=== PATIENT | male | born 1945 | race Caucasian/White ===

== ENCOUNTER 2021-10-22 00:16 | Inpatient (IN) | payer MEDICARE ==
[~2021-10-22] VITALS: Ht 185.4 cm; Wt 113.4 kg
[~2021-10-22 00:16] MED LIST: ALBU90OI61 INH; ASPI325 PO; ASPI81CH PO; CLOP75 PO; Coumadin5 MG PO; Coumadin6 MG PO; DIGO.125 PO; FAMO10 PO; FAMO20 PO; FURO20 PO; GLUC500 PO; LISI20 PO; LISI5 PO; METF500 PO; NEBI10 PO; NICO21TP TOP; POTCHL10ER PO; ROSU5 PO; WARF1 PO; WARF5; WARF5 PO
[2021-10-22 00:52] LABS: BASOPHILS ABSOLUTE AUTO 0.04 K/mm3 (0.00-0.23); BASOPHILS PERCENT AUTO 0 % (0-2); EOSINOPHILS ABSOLUTE AUTO 0.19 K/mm3 (0.00-0.68); EOSINOPHILS PERCENT AUTO 2 % (0-6); IMMATURE GRAN ABSOLUTE AUTO 0.04 K/mm3 (0.00-0.10); IMMATURE GRAN PERCENT AUTO 0 % (0-1); LYMPHOCYTES ABSOLUTE AUTO 2.51 K/mm3 (0.84-5.20); LYMPHOCYTES PERCENT AUTO 22 % (21-46); MONOCYTES ABSOLUTE AUTO 1.01 K/mm3 (0.16-1.47); MONOCYTES PERCENT AUTO 9 % (4-13); Mean Corpuscular HGB 27.5 pg (26.0-34.0); Mean Corpuscular HGB Conc 32.6 g/dL (31.5-36.5); Mean Corpuscular Volume 84 fL (80-100); Mean Platelet Volume 9.2 fL (9.1-12.4); NEUTROPHILS PERCENT AUTO 67 % (41-73); Platelet Count 225 K/mm3 (150-400); RDW Coefficient Variation 15.2 % (11.7-14.2); RDW Standard Deviation 47.6 fL (35.1-46.3); White Blood Cell Count 11.39 K/mm3 (4.00-11.30)
[2021-10-22] MEDS ORDERED: FUROSEMIDE20 MG PO (00:56)
[2021-10-22] MEDS ORDERED: JANTOVEN5 M2 PO (00:56)
[2021-10-22] MEDS ORDERED: K-Dur10 MEQ PO (00:56)
[2021-10-22] MEDS ORDERED: PIOGLITAZONE HC15 MG PO (00:57)
[2021-10-22 01:12] LABS: Alanine Aminotransfer (ALT/SGP 18 U/L (12-78); Albumin, Blood 3.3 g/dL (3.4-5.0); Albumin/Globulin Ratio 0.8 (0.8-1.8); Alk Phos 43 U/L (50-136); Anion Gap 8 mmol/L (6-16); Aspartate Aminotrans (AST/SGOT 13 U/L (12-37); Bilirubin, Total 0.8 mg/dL (0.1-1.0); Blood Urea Nitrogen 12 mg/dL (8-24); CO2, Blood 24 mmol/L (21-32); Calcium, Blood 8.9 mg/dL (8.5-10.1); Chloride, Blood 107 mmol/L (98-108); Creatinine, Blood 0.71 mg/dL (0.60-1.20); Globulin, Blood 4.4 g/dL (2.2-4.0); Glomerular Filtration Rate >60 (60-); Glucose, Blood 178 mg/dL (70-99); Potassium, Blood 4.1 mmol/L (3.5-5.5); Sodium, Blood 139 mmol/L (136-145); Total Protein, Blood 7.7 g/dL (6.4-8.2); Troponin I <0.015 ng/mL (0.000-0.040)
[2021-10-22 01:28] LABS: Influenza A, PCR NEGATIVE (NEGATIVE); Influenza B, PCR NEGATIVE (NEGATIVE); Resp Syncytial Virus, PCR NEGATIVE (NEGATIVE); SARS-Cov-2 (COVID-19) PCR, MMC NEGATIVE (NEGATIVE)
[2021-10-22 02:06] LABS: International Normalized Ratio 1.98; Prothrombin Time Results 19.9 Sec (9.7-11.5)
[2021-10-22 08:55] LABS: International Normalized Ratio 1.92; Prothrombin Time Results 19.3 Sec (9.7-11.5)
--- NOTE | 2021-10-22 18:27 | NUR ---
Mr Angel Hager is a 76 year old male with a history significant for Chronic afib, Diabetes , hypertension , CAD and COPD who is admitted with shortness of breath and wheezing. He was initially presented to ER with few days of productive cough. Per ER Cough , chest x-ray shows pneumonia and EKG shows Afib with RVR.Troponin was negative. WBC 11.3. Patient is transferred to 345 for further evaluation and treatment. During admission assessment , he is alert and oriented x3 , denies any chest pain , dizziness, headache , shortness of breath. He ambulate independently. On Tele monitor, afib with RVR at 83. Insulin coverage was given for blood glucose. Vital signs are stable. Call light within reach. Continue to monitor.
--- NOTE | 2021-10-23 05:14 | NUR ---
SHIFT SUMMARY A/OX3, COOPERATIVE WITH CARE. DENIES PAIN OR SOB. TELE AFIB AVERAGE IN THE 80S. IND IN ROOM. VSS, NO ACUTE CHANGES AT THIS TIME. BED IN LOWEST POSITION WITH CALL LIGHT IN REACH. WILL CONTINUE TO MONITOR AND REPORT TO ONCOMING RN.
[2021-10-23 05:30] LABS: BASOPHILS ABSOLUTE AUTO 0.02 K/mm3 (0.00-0.23); BASOPHILS PERCENT AUTO 0 % (0-2); EOSINOPHILS PERCENT AUTO 0 % (0-6); Hematocrit 42.6 % (37.0-53.0); Hemoglobin 13.9 g/dL (13.5-17.5); IMMATURE GRAN ABSOLUTE AUTO 0.15 K/mm3 (0.00-0.10); IMMATURE GRAN PERCENT AUTO 1 % (0-1); LYMPHOCYTES ABSOLUTE AUTO 1.44 K/mm3 (0.84-5.20); LYMPHOCYTES PERCENT AUTO 9 % (21-46); MONOCYTES ABSOLUTE AUTO 1.13 K/mm3 (0.16-1.47); MONOCYTES PERCENT AUTO 7 % (4-13); Mean Corpuscular HGB 27.6 pg (26.0-34.0); Mean Corpuscular HGB Conc 32.6 g/dL (31.5-36.5); Mean Corpuscular Volume 85 fL (80-100); Mean Platelet Volume 9.4 fL (9.1-12.4); NEUTROPHILS ABSOLUTE AUTO 12.96 K/mm3 (1.96-9.15); NEUTROPHILS PERCENT AUTO 83 % (41-73); Platelet Count 229 K/mm3 (150-400); RDW Coefficient Variation 15.3 % (11.7-14.2); RDW Standard Deviation 47.1 fL (35.1-46.3); Red Blood Cell Count 5.03 M/mm3 (4.30-5.90)
[2021-10-23 05:43] LABS: International Normalized Ratio 2.34; Prothrombin Time Results 23.2 Sec (9.7-11.5)
[2021-10-23 05:55] LABS: Albumin, Blood 3.2 g/dL (3.4-5.0); Anion Gap 7 mmol/L (6-16); Blood Urea Nitrogen 20 mg/dL (8-24); CO2, Blood 25 mmol/L (21-32); Calcium, Blood 9.2 mg/dL (8.5-10.1); Chloride, Blood 106 mmol/L (98-108); Creatinine, Blood 0.77 mg/dL (0.60-1.20); Glomerular Filtration Rate >60 (60-); Glucose, Blood 208 mg/dL (70-99); Magnesium, Blood 1.9 mg/dL (1.6-2.4); Phosphorus, Blood 2.6 mg/dL (2.5-4.9); Potassium, Blood 4.6 mmol/L (3.5-5.5); Sodium, Blood 138 mmol/L (136-145)
--- NOTE | 2021-10-23 13:38 | NUR ---
Upon receiving a referral for spiritual care, I visit patient. Patient talks about his medical issues, his family unit complications and his dogs. Patient becomes tearful when talking about the of his of 56yrs. She a little over a month ago from COVID while in our hospital. Patient only allows for small doses of grief before changing the subjct but he returns to the topic several times duing our conversation. Patient displays evidence of grief over the loss of some of his independence and mobility. I provide grief support, therapeutic listening and gentle child and family counselor. Patient responds well and shows signs of being comforted. I will continue to assist patient with grief issues and his failing health.
[2021-10-23] MEDS ORDERED: Acetaminophen325 M1 PO (14:02)
[2021-10-23] MEDS ORDERED: ALBU90OI INH (14:03)
[2021-10-23] MEDS ORDERED: AZIT250 PO (14:03)
[2021-10-23] MEDS ORDERED: GUAI600T33 PO (14:04)
[2021-10-23] MEDS ORDERED: CEFP200 PO (14:04)
[2021-10-23] MEDS ORDERED: TIOT18 INH (14:06)
[2021-10-23] MEDS ORDERED: Prednisone10 MG PO (14:08)
[2021-10-23] MEDS ORDERED: FLUTICASONE-SA1 EAC1 INH (14:08)
--- NOTE | 2021-10-23 16:19 | NUR ---
Per chart review with Dr. Massey, patient is appropriate for discharge. Patient is returning home with with his daughter and grandchildren, feels his situation is safe, denied barriers to discharge or concerns with safety. Patient declined Home Health Order. I scheduled a hospital follow-up with Dr. Al for tomorrow Sunday, October 24, 2021 03:20 PM. Patient is aware and agreed with appt time.
--- NOTE | 2021-10-23 17:59 | NUR ---
Alert and oriented x3 , able to make needs known. Denies any pain. Continue on tele monitor with afib average at 80s. Continue on ABO therapy for PNA , no adverse effects. Vital signs are stable.Patient is discharged home in a stable and discharged instruction is given and acknowledged.
== END 2021-10-23 17:31 | disposition home health service (06) | DRG 190 ==
LOC: ER 00:16 → ERHOLD 01:38 → MEDS 15:40 → ENPENDDIS 10-23 12:40 → MEDS 10-23 17:31
PROVIDERS: Emergency Medicine; Family Medicine; ADMIT Internal Medicine
DX: J44.0 Chronic obstructive pulmonary disease with (acute) lower respiratory infection (principal); J18.9 Pneumonia, unspecified organism; I48.20 Chronic atrial fibrillation, unspecified; I42.9 Cardiomyopathy, unspecified; J44.1 Chronic obstructive pulmonary disease with (acute) exacerbation; E78.5 Hyperlipidemia, unspecified; G47.33 Obstructive sleep apnea (adult) (pediatric); E11.9 Type 2 diabetes mellitus without complications; Z79.899 Other long term (current) drug therapy; Z23 Encounter for immunization
CPT/HCPCS: 0241U; 36415; 71045; 80053; 80069; 82947; 83605; 83735; 83880; 84484; 85025; 85610; 90686; 93005; 93010; 94640; 94644; 94760; 96374; 96375; 96376; 99285-25; A9270; G0008; J0456; J0696; J1160; J1650; J1940; J2930; J7050; J7512

== ENCOUNTER 2022-08-30 22:47 | Emergency (ER) | payer MEDICARE ==
[~2022-08-30] VITALS: Ht 182.9 cm; Wt 127.0 kg
[~2022-08-30 22:47] MED LIST changes: +ALBU90OI INH; +AZIT250 PO; +Acetaminophen325 M1 PO; +CEFP200 PO; +FLUTICASONE-SA1 EAC1 INH; +FUROSEMIDE20 MG PO; +GUAI600T33 PO; +JANTOVEN5 M2 PO; +K-Dur10 MEQ PO; +PIOGLITAZONE HC15 MG PO; +Prednisone10 MG PO; +TIOT18 INH
== END 2022-08-31 00:41 | disposition home or self-care (01) ==
LOC: ER 22:47
DX: R04.0 Epistaxis (principal); F17.210 Nicotine dependence, cigarettes, uncomplicated; Z79.899 Other long term (current) drug therapy; Z79.01 Long term (current) use of anticoagulants; Z79.52 Long term (current) use of systemic steroids; Z95.5 Presence of coronary angioplasty implant and graft

== ENCOUNTER 2022-08-31 01:39 | Emergency (ER) | payer MEDICARE ==
[~2022-08-31] VITALS: Ht 188 cm; Wt 113.4 kg
== END 2022-08-31 02:43 | disposition home or self-care (01) ==
LOC: ER 01:39
DX: R04.0 Epistaxis (principal); J44.9 Chronic obstructive pulmonary disease, unspecified; I10 Essential (primary) hypertension; I48.91 Unspecified atrial fibrillation; E11.9 Type 2 diabetes mellitus without complications; F17.210 Nicotine dependence, cigarettes, uncomplicated; Z79.01 Long term (current) use of anticoagulants; Z79.899 Other long term (current) drug therapy
CPT/HCPCS: 30901; 99282-25

== ENCOUNTER → 2023-01-15 | Outpatient (CLI) | payer MEDICARE ==
[~2023-01-15] MED LIST changes: +AMOX-CLAV 875-1 EAC5 PO; +Bystolic20 MG PO; +DIGOX125 MC1 PO; +GLIP5 PO; +GLUCOPHAGE1000 M1 PO; +LOVASTATIN40 MG PO; -METF500 PO; +Monodox100 MG PO; -NEBI10 PO
[2023-01-15 15:39] LABS: BASOPHILS ABSOLUTE AUTO 0.07 K/mm3 (0.00-0.23); BASOPHILS PERCENT AUTO 1 % (0-2); EOSINOPHILS ABSOLUTE AUTO 0.26 K/mm3 (0.00-0.68); EOSINOPHILS PERCENT AUTO 3 % (0-6); Hematocrit 48.8 % (37.0-53.0); Hemoglobin 16.2 g/dL (13.5-17.5); IMMATURE GRAN ABSOLUTE AUTO 0.04 K/mm3 (0.00-0.10); IMMATURE GRAN PERCENT AUTO 1 % (0-1); LYMPHOCYTES ABSOLUTE AUTO 1.15 K/mm3 (0.84-5.20); LYMPHOCYTES PERCENT AUTO 13 % (21-46); MONOCYTES ABSOLUTE AUTO 0.82 K/mm3 (0.16-1.47); MONOCYTES PERCENT AUTO 9 % (4-13); Mean Corpuscular HGB Conc 33.2 g/dL (31.5-36.5); Mean Corpuscular Volume 84 fL (80-100); Mean Platelet Volume 9.2 fL (9.1-12.4); NEUTROPHILS ABSOLUTE AUTO 6.48 K/mm3 (1.96-9.15); NEUTROPHILS PERCENT AUTO 74 % (41-73); Platelet Count 191 K/mm3 (150-400); RDW Coefficient Variation 15.7 % (11.7-14.2); RDW Standard Deviation 47.6 fL (35.1-46.3); Red Blood Cell Count 5.79 M/mm3 (4.30-5.90); White Blood Cell Count 8.82 K/mm3 (4.00-11.30)
[2023-01-15 15:47] LABS: Bun/Creatinine Ratio 11.5 (12.0-20.0); Creatinine, Blood 0.78 mg/dL (0.60-1.20)
== END | disposition home or self-care (01) ==
LOC: LAB 15:32 → LAB SHORT 15:32
PROVIDERS: Family Medicine
DX: R06.02 Shortness of breath (principal)
CPT/HCPCS: 80048; 83880; 84484; 85025

== ENCOUNTER 2023-01-18 11:19 | Inpatient (IN) | payer MEDICARE ==
[~2023-01-18] VITALS: Ht 182.9 cm; Wt 100.1 kg
[~2023-01-18 11:19] MED LIST changes: -ALBU90OI INH; -AMOX-CLAV 875-1 EAC5 PO; -Bystolic20 MG PO; -DIGOX125 MC1 PO; -FUROSEMIDE20 MG PO; -GLIP5 PO; -GLUCOPHAGE1000 M1 PO; -JANTOVEN5 M2 PO; -LISI20 PO; -LOVASTATIN40 MG PO; -Monodox100 MG PO; -PIOGLITAZONE HC15 MG PO
[2023-01-18 13:14] LABS: Albumin, Blood 3.5 g/dL (3.4-5.0); Bilirubin, Total 0.5 mg/dL (0.1-1.0); Bun/Creatinine Ratio 27.1 (12.0-20.0); Creatinine, Blood 0.66 mg/dL (0.60-1.20); Globulin, Blood 3.6 g/dL (2.2-4.0); Potassium, Blood 4.1 mmol/L (3.5-5.5); Total Protein, Blood 7.1 g/dL (6.4-8.2)
[2023-01-18 13:18] LABS: BASOPHILS ABSOLUTE AUTO 0.04 K/mm3 (0.00-0.23); BASOPHILS PERCENT AUTO 0 % (0-2); EOSINOPHILS ABSOLUTE AUTO 0.12 K/mm3 (0.00-0.68); EOSINOPHILS PERCENT AUTO 1 % (0-6); Hematocrit 49.8 % (37.0-53.0); Hemoglobin 16.4 g/dL (13.5-17.5); IMMATURE GRAN ABSOLUTE AUTO 0.07 K/mm3 (0.00-0.10); IMMATURE GRAN PERCENT AUTO 1 % (0-1); LYMPHOCYTES ABSOLUTE AUTO 1.41 K/mm3 (0.84-5.20); LYMPHOCYTES PERCENT AUTO 14 % (21-46); MONOCYTES ABSOLUTE AUTO 1.01 K/mm3 (0.16-1.47); MONOCYTES PERCENT AUTO 10 % (4-13); Mean Corpuscular HGB Conc 32.9 g/dL (31.5-36.5); Mean Corpuscular Volume 85 fL (80-100); Mean Platelet Volume 9.5 fL (9.1-12.4); NEUTROPHILS PERCENT AUTO 75 % (41-73); Platelet Count 225 K/mm3 (150-400); RDW Coefficient Variation 15.7 % (11.7-14.2); RDW Standard Deviation 49.6 fL (35.1-46.3); Red Blood Cell Count 5.85 M/mm3 (4.30-5.90); White Blood Cell Count 10.45 K/mm3 (4.00-11.30)
[2023-01-18] MEDS ORDERED: AMOX-CLAV 875-1 EAC5 PO (19:26)
[2023-01-18] MEDS ORDERED: Monodox100 MG PO (19:27)
[2023-01-18] MEDS ORDERED: DIGOX125 MC1 PO (19:27)
[2023-01-18] MEDS ORDERED: GLIP5 PO (19:28)
[2023-01-18] MEDS ORDERED: PIOGLITAZONE HC15 MG PO (19:28)
[2023-01-18] MEDS ORDERED: LISI20 PO (19:29)
[2023-01-18] MEDS ORDERED: ALBU90OI INH (19:29)
[2023-01-18 19:30] LABS: International Normalized Ratio 3.35; Prothrombin Time Results 32.5 Sec (9.7-11.5)
[2023-01-18] MEDS ORDERED: LOVASTATIN40 MG PO (19:30)
[2023-01-18] MEDS ORDERED: GLUCOPHAGE1000 M1 PO (19:30)
[2023-01-18] MEDS ORDERED: Bystolic20 MG PO (19:31)
[2023-01-18] MEDS ORDERED: FUROSEMIDE20 MG PO (19:31)
[2023-01-18] MEDS ORDERED: POTCHL10ER PO (19:31)
[2023-01-18] MEDS ORDERED: JANTOVEN5 M2 PO (19:33)
[2023-01-18 19:41] LABS: Digoxin (Lanoxin) 0.58 ug/mL (0.80-2.00)
[2023-01-19 05:02] LABS: International Normalized Ratio 3.82
--- NOTE | 2023-01-19 05:03 | NUR ---
PT IS A&O4, INDEPENDENT WITH ADL'S, 3L NC SATS IN THE MID 90'S, PT IS TACHY AND SOB ON EXCERTION, CARDIZEM GIVEN PER MAR FOR HR >130, NO COMPLAINTS OF PAIN OVERNIGHT, VSS, CONTINUE POC
[2023-01-19 05:06] LABS: Prothrombin Time Results 36.7 Sec (9.7-11.5)
--- NOTE | 2023-01-19 19:14 | NUR ---
SHIFT SUMMARY A&O X 4. VSS. IS INDEPENDENT IN THE ROOM FOR RESTROOM USE. IS SATING >90% ON 2 L'S O2. IS ON TELE, HE BECOMES TACHY WITH ANY EXERTION IN THE ROOM, UP TO THE RESTROOM. HR UP TO 150'S. HE DEINIES PAIN, N/V. STATES HE BECOMES SOB WITH EXERTION. IS [place]. IS PLEASANT & COOPERATIVE WITH ALL CARE.
--- NOTE | 2023-01-19 22:35 | NUR ---
PATIENT HR >130'S AT REST, PRN CARDIZEM GIVEN. HR 85 POST CARDIZEM ADMINISTRATION. PATIENT AAOX4, ON 3LNC, SATTING IN 90'S. WILL CONTINUE TO MONITOR.
[2023-01-20 04:25] LABS: BASOPHILS ABSOLUTE AUTO 0.03 K/mm3 (0.00-0.23); BASOPHILS PERCENT AUTO 0 % (0-2); EOSINOPHILS PERCENT AUTO 0 % (0-6); Hematocrit 47.7 % (37.0-53.0); Hemoglobin 15.7 g/dL (13.5-17.5); IMMATURE GRAN PERCENT AUTO 1 % (0-1); LYMPHOCYTES ABSOLUTE AUTO 1.22 K/mm3 (0.84-5.20); LYMPHOCYTES PERCENT AUTO 8 % (21-46); MONOCYTES ABSOLUTE AUTO 0.62 K/mm3 (0.16-1.47); MONOCYTES PERCENT AUTO 4 % (4-13); Mean Corpuscular HGB 27.8 pg (26.0-34.0); Mean Corpuscular HGB Conc 32.9 g/dL (31.5-36.5); Mean Corpuscular Volume 85 fL (80-100); NEUTROPHILS ABSOLUTE AUTO 13.56 K/mm3 (1.96-9.15); NEUTROPHILS PERCENT AUTO 87 % (41-73); Platelet Count 222 K/mm3 (150-400); RDW Coefficient Variation 15.2 % (11.7-14.2); RDW Standard Deviation 46.9 fL (35.1-46.3); Red Blood Cell Count 5.64 M/mm3 (4.30-5.90); White Blood Cell Count 15.53 K/mm3 (4.00-11.30)
[2023-01-20 04:42] LABS: Calcium, Blood 8.8 mg/dL (8.5-10.1); Creatinine, Blood 0.57 mg/dL (0.60-1.20); Potassium, Blood 4.3 mmol/L (3.5-5.5)
[2023-01-20 09:12] LABS: International Normalized Ratio 2.78; Prothrombin Time Results 27.3 Sec (9.7-11.5)
--- NOTE | 2023-01-20 18:43 | NUR ---
SHIFT SUMMARY PT A&O X 4. VSS. PT ON TELE, SHOWS TACHY WHEN UP TO RESTROOM. HR WILL GO HIGH 150-160'S BUT WILL RETURN TO 90-120 ONCE SETTLED BACK INTO BED. PT TRIALED ON RA HOWEVER PT REPORTED INCREASED SOB AND REQUIRED O2 AT 2 L'S TO RE-ESTABLISH EASE OF BREATHING. COAGS DRAWN TODAY. MD RE-STARTED PT'S COUMADIN. PER MD ORDER 1ST DOSE GIVEN THIS EVENING. BLOOD SUGARS COVERED WITH NEW MD ORDER OF HUMALOG INSTEAD OF ORIGINAL ORDER FOR HUMULIN R. BG'S ARE LIKELY ELEVATED FROM CURRENT ILLNESS AND IV STEROIDS. PT EDUCATED REGARDING. PLAN IS FOR DC HOME ONCE CLINICALLY STABLE. PT IS INDEPENDENT IN THE ROOM FOR RESTROOM USE. IS PLEASANT & COOPERATIVE WITH ALL CARE.
--- NOTE | 2023-01-21 04:52 | NUR ---
PULLBOAT ENGINEER SUMMARY NO ACUTE EVENTS THROUGHOUT THE NIGHT. A&OX4. PATIENT EFFECTIVELY COMMUNICATES NEEDS. VSS. RR EVEN AND UNLABORED ON 2L. PATIENT DONS CPAP DURING SLEEP. TELE REVEALS A-FIB, HR 80'S. PATIENT DOES DEMONSTRATE TACHYCARDIA >150 DURING ACTIVITY. CALL LIGHT WITHIN REACH. BED LOW AND LOCKED. THIS RN WILL CONTINUE TO MONITOR.
[2023-01-21 05:15] LABS: BASOPHILS ABSOLUTE AUTO 0.03 K/mm3 (0.00-0.23); BASOPHILS PERCENT AUTO 0 % (0-2); EOSINOPHILS PERCENT AUTO 0 % (0-6); Hematocrit 48.7 % (37.0-53.0); Hemoglobin 15.7 g/dL (13.5-17.5); IMMATURE GRAN ABSOLUTE AUTO 0.13 K/mm3 (0.00-0.10); IMMATURE GRAN PERCENT AUTO 1 % (0-1); LYMPHOCYTES ABSOLUTE AUTO 1.06 K/mm3 (0.84-5.20); LYMPHOCYTES PERCENT AUTO 7 % (21-46); MONOCYTES PERCENT AUTO 4 % (4-13); Mean Corpuscular HGB 27.2 pg (26.0-34.0); Mean Corpuscular HGB Conc 32.2 g/dL (31.5-36.5); Mean Corpuscular Volume 84 fL (80-100); Mean Platelet Volume 9.4 fL (9.1-12.4); NEUTROPHILS ABSOLUTE AUTO 12.62 K/mm3 (1.96-9.15); NEUTROPHILS PERCENT AUTO 87 % (41-73); Platelet Count 205 K/mm3 (150-400); RDW Coefficient Variation 15.3 % (11.7-14.2); RDW Standard Deviation 46.8 fL (35.1-46.3); Red Blood Cell Count 5.77 M/mm3 (4.30-5.90); White Blood Cell Count 14.44 K/mm3 (4.00-11.30)
[2023-01-21 05:27] LABS: International Normalized Ratio 2.14; Prothrombin Time Results 21.4 Sec (9.7-11.5)
[2023-01-21 05:34] LABS: Bun/Creatinine Ratio 32.8 (12.0-20.0); Calcium, Blood 9.2 mg/dL (8.5-10.1); Creatinine, Blood 0.67 mg/dL (0.60-1.20); Potassium, Blood 4.1 mmol/L (3.5-5.5)
--- NOTE | 2023-01-21 17:57 | NUR ---
SHIFT SUMMARY-PT AAOX4 THIS SHIFT. INDEPENDENT IN ROOM. CALM AND COOPERATIVE. PT DID HAVE ONE EPISODE OF INCREASED HR IN THE 180'S (X1) FOR A FEW SECONDS AND THEN A FEW EPISODES OF INCREASED HR FROM 120-140'S. NOTHING WAS SUSTAINED. AFTER MORNING MEDS, HR WAS WELL CONTROLLED.
[2023-01-22 05:09] LABS: International Normalized Ratio 1.77; Prothrombin Time Results 17.9 Sec (9.7-11.5)
--- NOTE | 2023-01-22 05:30 | NUR ---
DIPPER AND BAKER SUMMARY PT A/OX4. PLEASANT AND COOPERATIVE. ON TELE; AFIB IN THE LOW 100'S; RCVD 2-3 CALLS FROM SAND DIGGER TO REPORT PT JUMPED TO 150-180'S BRIEFLY; WHEN CHECKING THE PT--HE WAS ASYMPTOMATIC; PT DENIED CHEST PAIN/PRESSURE, SOB, OR HEART PALPATATIONS. PT ON 2L NC DURING DAY; PLACED CPAP ON OVERNIGHT W/2L BLEED IN. PT TOLERATES WELL. INDEPENDENT IN ROOM, ABLE TO COMMUNICATE NEEDS. CALL LIGHT ACCESSIBLE.
[2023-01-22] MEDS ORDERED: ASPI81CH PO (13:36)
[2023-01-22] MEDS ORDERED: INSULANI SC (13:37)
[2023-01-22] MEDS ORDERED: METO50ER PO (13:40)
[2023-01-22] MEDS ORDERED: PRED20 PO (13:40)
--- NOTE | 2023-01-22 17:00 | NUR ---
PT DISCHARGED THE PT VERBALIZED UNDERSTANDING OF THE DC INSTRUCTIONS. THE PTS PRESCIPTIONS WERE FAXED TO [facility] REQUESTED. OXYGEN WAS DELIVERED AND APPLIED AT DISCHARGE. THE PT WAS TRANSFERED VIA WHEELCHAIR ACCOMPANIED BY THE FOOT TENDER AND HIS FAMILY
== END 2023-01-22 17:18 | disposition home or self-care (01) | DRG 189 ==
LOC: ER 11:19 → MEDS 18:59 → ERHOLD 18:59 → MEDS 20:34
PROVIDERS: Internal Medicine; Physician Assistant; ADMIT Internal Medicine
PROC: 5A09357 Assistance with Respiratory Ventilation, Less than 24 Consecutive Hours, Continuous Positive Airway Pressure (ICD-10-PCS; principal; 2023-01-18)
DX: J96.01 Acute respiratory failure with hypoxia (principal); J44.1 Chronic obstructive pulmonary disease with (acute) exacerbation; I42.9 Cardiomyopathy, unspecified; I48.91 Unspecified atrial fibrillation; I25.10 Atherosclerotic heart disease of native coronary artery without angina pectoris; E11.9 Type 2 diabetes mellitus without complications; G47.33 Obstructive sleep apnea (adult) (pediatric); F17.210 Nicotine dependence, cigarettes, uncomplicated; Z66 Do not resuscitate; E78.5 Hyperlipidemia, unspecified; Z79.899 Other long term (current) drug therapy; Z79.84 Long term (current) use of oral hypoglycemic drugs; Z99.81 Dependence on supplemental oxygen; Z79.01 Long term (current) use of anticoagulants; Z79.811 Long term (current) use of aromatase inhibitors; Z79.51 Long term (current) use of inhaled steroids; Z79.2 Long term (current) use of antibiotics; Z79.52 Long term (current) use of systemic steroids; Z79.82 Long term (current) use of aspirin; Z95.5 Presence of coronary angioplasty implant and graft; Z98.890 Other specified postprocedural states
CPT/HCPCS: 36415; 71046; 80048; 80053; 80162; 82947; 85025; 85610; 93005; 93010; 94640; 94644; 94660; 94664; 94760; 94761; 94762; 96374; 96375; 99285-25; A9270; J1815; J2930; J7512

== ENCOUNTER 2024-03-29 16:20 | Emergency (ER) | payer MEDICARE ==
[~2024-03-29] VITALS: Ht 182.9 cm; Wt 116.1 kg
[~2024-03-29 16:20] MED LIST changes: +ALBU90OI INH; +AMOX-CLAV 875-1 EAC5 PO; +Bystolic20 MG PO; +DIGOX125 MC1 PO; +FUROSEMIDE20 MG PO; +GLIP5 PO; +GLUCOPHAGE1000 M1 PO; +INSULANI SC; +JANTOVEN5 M2 PO; +LISI20 PO; +LOVASTATIN40 MG PO; +METO50ER PO; +Monodox100 MG PO; +PIOGLITAZONE HC15 MG PO; +PRED20 PO
[2024-03-29 16:52] VITALS: BP 132/89
[2024-03-29] MEDS ORDERED: Silver Sulfadiazine 1% Cream 25 APPLIC/25 GM Tube TOP SCH (18:30)
== END 2024-03-29 18:50 | disposition home or self-care (01) ==
LOC: ER 16:20
DX: T21.22XA Burn of second degree of abdominal wall, initial encounter (principal); T31.0 Burns involving less than 10% of body surface; J44.9 Chronic obstructive pulmonary disease, unspecified; X08.8XXA Exposure to other specified smoke, fire and flames, initial encounter; Z79.899 Other long term (current) drug therapy; Z79.84 Long term (current) use of oral hypoglycemic drugs; Z79.01 Long term (current) use of anticoagulants; Z79.82 Long term (current) use of aspirin; Z79.52 Long term (current) use of systemic steroids; F17.210 Nicotine dependence, cigarettes, uncomplicated
CPT/HCPCS: 99283; A9270

== ENCOUNTER 2024-04-06 00:07 | Day surgery (SDC) | payer MEDICARE | END 2024-04-06 22:41 | disposition home or self-care (01) | LOC: WOUND 00:07 | DX: T21.22XD Burn of second degree of abdominal wall, subsequent encounter (principal); T21.23XD Burn of second degree of upper back, subsequent encounter; X06.2XXD Exposure to ignition of other clothing and apparel, subsequent encounter; J44.9 Chronic obstructive pulmonary disease, unspecified; F17.200 Nicotine dependence, unspecified, uncomplicated; Z99.81 Dependence on supplemental oxygen; I10 Essential (primary) hypertension; I25.10 Atherosclerotic heart disease of native coronary artery without angina pectoris; I48.91 Unspecified atrial fibrillation; G47.30 Sleep apnea, unspecified ==

== ENCOUNTER 2024-04-13 04:19 | Day surgery (SDC) | payer MEDICARE | END 2024-04-13 22:49 | disposition home or self-care (01) | LOC: WOUND 04:19 | DX: T21.2 Burn of second degree of trunk (principal); Y83.8 Other surgical procedures as the cause of abnormal reaction of the patient, or of later complication, without mention of misadventure at the time of the procedure; J44.9 Chronic obstructive pulmonary disease, unspecified; E11.9 Type 2 diabetes mellitus without complications; X08.8XXD Exposure to other specified smoke, fire and flames, subsequent encounter ==

== ENCOUNTER 2024-05-13 14:55 | Emergency (ER) | payer MEDICARE ==
[~2024-05-13] VITALS: Ht 182.9 cm; Wt 113.4 kg
[2024-05-13 15:18] LABS: BASOPHILS ABSOLUTE AUTO 0.03 K/mm3 (0.00-0.23); BASOPHILS PERCENT AUTO 0 % (0-2); EOSINOPHILS ABSOLUTE AUTO 0.28 K/mm3 (0.00-0.68); EOSINOPHILS PERCENT AUTO 3 % (0-6); IMMATURE GRAN ABSOLUTE AUTO 0.02 K/mm3 (0.00-0.10); IMMATURE GRAN PERCENT AUTO 0 % (0-1); LYMPHOCYTES ABSOLUTE AUTO 1.19 K/mm3 (0.84-5.20); LYMPHOCYTES PERCENT AUTO 14 % (21-46); MONOCYTES ABSOLUTE AUTO 0.54 K/mm3 (0.16-1.47); MONOCYTES PERCENT AUTO 7 % (4-13); Mean Corpuscular HGB 27.9 pg (26.0-34.0); Mean Corpuscular HGB Conc 31.8 g/dL (31.5-36.5); Mean Corpuscular Volume 88 fL (80-100); Mean Platelet Volume 9.9 fL (9.1-12.4); NEUTROPHILS ABSOLUTE AUTO 6.18 K/mm3 (1.96-9.15); NEUTROPHILS PERCENT AUTO 75 % (41-73); Platelet Count 171 K/mm3 (150-400); RDW Coefficient Variation 16.2 % (11.7-14.2); RDW Standard Deviation 51.8 fL (35.1-46.3); Red Blood Cell Count 5.02 M/mm3 (4.30-5.90); White Blood Cell Count 8.24 K/mm3 (4.00-11.30)
[2024-05-13 15:26] LABS: International Normalized Ratio 1.67; Prothrombin Time Results 17.2 Sec (9.7-11.5)
[2024-05-13 15:40] LABS: Albumin, Blood 3.5 g/dL (3.4-5.0); Albumin/Globulin Ratio 1.1 (0.8-1.8); Bilirubin, Total 0.7 mg/dL (0.1-1.0); Bun/Creatinine Ratio 14.9 (12.0-20.0); Calcium, Blood 8.6 mg/dL (8.5-10.1); Creatinine, Blood 0.74 mg/dL (0.60-1.20); Globulin, Blood 3.3 g/dL (2.2-4.0); Potassium, Blood 3.8 mmol/L (3.5-5.5); Total Protein, Blood 6.8 g/dL (6.4-8.2)
[2024-05-13] MEDS ORDERED: Diltiazem HCl 5 MG / ML 5ML Vial IV ONE (15:40)
[2024-05-13 16:26] VITALS: BP 121/62
[2024-05-13] MEDS ORDERED: METO25ER PO (17:47)
== END 2024-05-13 18:03 | disposition home or self-care (01) ==
LOC: ER 14:55
PROVIDERS: Student in an Organized Health Care Education/Training Program
DX: I48.91 Unspecified atrial fibrillation (principal); R55 Syncope and collapse; F17.210 Nicotine dependence, cigarettes, uncomplicated; Z79.01 Long term (current) use of anticoagulants; Z79.84 Long term (current) use of oral hypoglycemic drugs; Z79.82 Long term (current) use of aspirin; Z79.52 Long term (current) use of systemic steroids; Z79.899 Other long term (current) drug therapy
CPT/HCPCS: 71046; 80053; 82947; 83735; 84484; 85025; 85610; 93005; 93010; 96374; 99284-25

== ENCOUNTER 2025-03-27 00:42 | Inpatient (IN) | payer MEDICARE ==
[~2025-03-27] VITALS: Ht 182.9 cm; Wt 117.4 kg
[~2025-03-27 00:42] MED LIST changes: +METO25ER PO
[2025-03-27] MEDS ORDERED: Ipratropium/Albuterol SulF 2.5-0.5MG/3 ML Amp INH PRN (01:00)
[2025-03-27] MEDS ORDERED: Ipratropium/Albuterol SulF 2.5-0.5MG/3 ML Amp INH ONE (01:35)
[2025-03-27 01:45] LABS: Base Excess Venous 0.9 mmol/L; Bicarbonate Venous 24.6 mmol/L (24.0-30.0); PCO2 Venous 44.9 mmHg (38-42); pH Blood Venous 7.37 (7.34-7.37)
[2025-03-27 01:52] LABS: BASOPHILS ABSOLUTE AUTO 0.04 K/mm3 (0.00-0.23); BASOPHILS PERCENT AUTO 0 % (0-2); EOSINOPHILS ABSOLUTE AUTO 0.09 K/mm3 (0.00-0.68); EOSINOPHILS PERCENT AUTO 1 % (0-6); Hematocrit 44.3 % (37.0-53.0); Hemoglobin 14.4 g/dL (13.5-17.5); IMMATURE GRAN ABSOLUTE AUTO 0.11 K/mm3 (0.00-0.10); IMMATURE GRAN PERCENT AUTO 1 % (0-1); LYMPHOCYTES ABSOLUTE AUTO 0.58 K/mm3 (0.84-5.20); LYMPHOCYTES PERCENT AUTO 4 % (21-46); MONOCYTES PERCENT AUTO 8 % (4-13); Mean Corpuscular HGB 28.6 pg (26.0-34.0); Mean Corpuscular HGB Conc 32.5 g/dL (31.5-36.5); Mean Corpuscular Volume 88 fL (80-100); NEUTROPHILS ABSOLUTE AUTO 12.55 K/mm3 (1.96-9.15); NEUTROPHILS PERCENT AUTO 87 % (41-73); Platelet Count 184 K/mm3 (150-400); RDW Coefficient Variation 15.3 % (11.7-14.2); RDW Standard Deviation 49.1 fL (35.1-46.3); Red Blood Cell Count 5.03 M/mm3 (4.30-5.90); White Blood Cell Count 14.47 K/mm3 (4.00-11.30)
[2025-03-27] MEDS ORDERED: MethylPREDNISolone Sod Succ 125 MG Vial IV ONE (01:55)
[2025-03-27] MEDS ORDERED: Azithromycin 500 MG in NS 250 ML IV ONE (01:55)
[2025-03-27 02:08] LABS: Albumin, Blood 3.4 g/dL (3.4-5.0); Albumin/Globulin Ratio 0.9 (0.8-1.8); Bilirubin, Total 1.3 mg/dL (0.1-1.0); Bun/Creatinine Ratio 12.7 (12.0-20.0); Calcium, Blood 8.9 mg/dL (8.5-10.1); Creatinine, Blood 0.94 mg/dL (0.60-1.20); Globulin, Blood 3.6 g/dL (2.2-4.0); Potassium, Blood 4.4 mmol/L (3.5-5.5)
[2025-03-27 03:16] LABS: International Normalized Ratio 2.46; Prothrombin Time Results 24.6 Sec (9.7-11.5)
[2025-03-27 03:45] LABS: Influenza A, PCR NEGATIVE (NEGATIVE); Influenza B, PCR NEGATIVE (NEGATIVE); Resp Syncytial Virus, PCR NEGATIVE (NEGATIVE); SARS-Cov-2 (COVID-19) PCR, MMC NEGATIVE (NEGATIVE)
[2025-03-27] MEDS ORDERED: CefTRIAXone Sodium 1,000 MG in NS 100 ML IV ONE (04:00)
[2025-03-27] MEDS ORDERED: Ipratropium Bromide INH 0.02% 0.5 mg/2.5ML Vial INH SCH (04:05)
[2025-03-27] MEDS ORDERED: Albuterol 2.5 MG/3 ML VIAL INH SCH (04:05)
[2025-03-27] MEDS ORDERED: Ipratropium/Albuterol SulF 2.5-0.5MG/3 ML Amp INH SCH ×2 (05:00→19:20)
[2025-03-27] MEDS ORDERED: Acetaminophen 325 MG TABLET PO PRN (05:05)
[2025-03-27] MEDS ORDERED: Heparin Sodium,Porcine/0.5 NS 500 ML IV SCH (05:55)
[2025-03-27] MEDS ORDERED: Albuterol 2.5 MG/3 ML VIAL INH PRN (06:25)
[2025-03-27] MEDS ORDERED: Vitamin D1000 UNI1 PO (07:25)
[2025-03-27] MEDS ORDERED: TRELEGY ELLIPT1 EACH INH (07:28)
[2025-03-27] MEDS ORDERED: C COMPLEX1000 M1 PO (07:30)
[2025-03-27] MEDS ORDERED: CINNAMON EXTRA500 MG PO (07:30)
[2025-03-27] MEDS ORDERED: Insulin Human Lispro 100 Units/ML 3ML Syringe SC SCH ×2 (07:30)
[2025-03-27 08:30] VITALS: BP 146/102
[2025-03-27] MEDS ORDERED: Aspirin 81 MG Chew PO SCH (09:00)
[2025-03-27] MEDS ORDERED: Atorvastatin 40 MG Tab PO SCH ×2 (09:00→21:00)
[2025-03-27] MEDS ORDERED: Metoprolol Succinate 25 MG TABCR PO SCH (09:00)
[2025-03-27] MEDS ORDERED: Empagliflozin 10 MG TAB PO SCH (09:00)
[2025-03-27] MEDS ORDERED: MethylPREDNISolone Sod Succ 125 MG Vial IV SCH (09:00)
[2025-03-27] MEDS ORDERED: GuaiFENesin 600 MG TabCR PO SCH (09:00)
[2025-03-27] MEDS ORDERED: Furosemide 20 MG Tab PO SCH (09:00)
[2025-03-27] MEDS ORDERED: Lactobacil 2-S.Thermo-Bifido 1 1 Cap PO SCH (09:00)
[2025-03-27] MEDS ORDERED: Lisinopril 20 MG Tab PO SCH (09:00)
[2025-03-27] MEDS ORDERED: Spironolactone 25 MG Tab PO SCH (11:00)
[2025-03-27] MEDS ORDERED: Torsemide 20 MG TAB PO SCH (11:00)
[2025-03-27] MEDS ORDERED: AmLODIPine Besylate 5 MG Tab PO SCH (11:00)
[2025-03-27] MEDS ORDERED: Clopidogrel Bisulfate 75 MG Tab PO SCH (11:00)
[2025-03-27] MEDS ORDERED: Pantoprazole Sodium 20 MG Tab PO SCH (11:00)
[2025-03-27 11:27] VITALS: BP 122/68
[2025-03-27] MEDS ORDERED: Dose Adjust by Pharmacy XX STA ×2 (14:50→21:49)
[2025-03-27] MEDS ORDERED: Heparin Sodium 5000 Units/ML 1ML MDV IV ONE (14:55)
[2025-03-27] MEDS ORDERED: Amiodarone HCl 50 MG / ML 3 ML Amp IV ONE (16:44)
[2025-03-27 16:54] VITALS: BP 124/75
--- NOTE | 2025-03-27 18:16 | NUR ---
SHIFT SUMMARY PT A/OX4 AND COOPERATIVE OF CARE. PT ABLE TO EXPRESS NEEDS AND CALLED APPROPIATE. PT VSS THROUGHOUT SHIFT WITH O2 SATS IN FE 90'S ON 3-5L NC, 5L IS PT REPORTED BASELINE. NO REPORT OF CHEST PAIN/PRESSURE THROUGHOUT SHIFT. NO REPORT OF SOB/DYSPNEA THROUGHOUT SHIFT. PT REQUESTED THAT THE LOW DOSES OF INSULIN BE HELD THIS SHIFT, NO INSULIN GIVEN PER PT REQUEST. BLOOD SUGARS RANGED 130'S-170'S, SEE CHART. PT SEEN BY CARDIOLOGY TODAY, SEE [facility] HCM CONSULTANT'S NOTES.
--- NOTE | 2025-03-27 19:42 | NUR ---
ASSUMPTION OF CARE ASSUMED PT'S CARE AT 1900,BEDSIDE REPORT COMPLETED.PT WIDE AWAKE WATCHING TV,TV GUIDE PROVIDED PER PT'S REQUEST.HEPARIN INFUSION RATE VERIFIED.INFUSING AT 17UNIT/KG/HOUR,32ML/HR.PLAN OF CARE REVIEWED.PT DENIES PAIN,DENIES NEEDS.CALL LIGHT AND PT'S ITEMS WITHIN REACH.WILL CONTINUE TO MONITOR.
[2025-03-27 20:42] VITALS: BP 134/75
[2025-03-27 23:51] VITALS: BP 139/75
[2025-03-28] VITALS (12 sets, daily range): BP systolic 118–177; BP diastolic 84–159
[2025-03-28 03:59] LABS: Bun/Creatinine Ratio 22.8 (12.0-20.0); Calcium, Blood 9.5 mg/dL (8.5-10.1); Creatinine, Blood 1.01 mg/dL (0.60-1.20); Potassium, Blood 3.5 mmol/L (3.5-5.5)
[2025-03-28] MEDS ORDERED: Dose Adjust by Pharmacy XX STA (04:36)
[2025-03-28 04:51] LABS: Hematocrit 44.3 % (37.0-53.0); Hemoglobin 14.1 g/dL (13.5-17.5); Mean Platelet Volume 10.3 fL (9.1-12.4); Platelet Count 193 K/mm3 (150-400)
[2025-03-28] MEDS ORDERED: CefTRIAXone Sodium 1,000 MG in NS 100 ML IV SCH (06:00)
[2025-03-28] MEDS ORDERED: Azithromycin 500 MG in NS 250 ML IV SCH (06:00)
[2025-03-28] MEDS ORDERED: Potassium Chloride 10 Meq Tablet SA PO ONE ×2 (06:25→09:25)
--- NOTE | 2025-03-28 06:44 | NUR ---
PT SLEPT MOST OF THE NIGHT,USED THE URINAL INDEPENDENTLY AT BEDSIDE.HEPARIN GTT INFUSING ORDERED,NO CHANGES IN RATE OVERNIGHT.HEPARIN ANTI-Xa WITHIN THERAPEUTIC RANGE.PT DENIES PAIN,DENIES NEEDS.CALL LIGHT AND PT'S ITEMS WITHIN REACH.WILL GIVE REPORT TO DAYSHIFT NURSE FOR CONTINUITY OF CARE.
--- NOTE | 2025-03-28 07:16 | NUR ---
ASSUMPTION NOTE: THIS RN TO ASSUME CARE OF PATIENT. PATIENT IN BED, WATCHING TV. DENIED ANY CHEST PAIN/PRESSURE. DENIED NEEDING ANYTHING AT THIS TIME, HAS CALL LIGHT WITHIN REACH & BED IN LOWEST POSITION.
--- NOTE | 2025-03-28 08:00 | NUR ---
CUSHION COVER INSPECTOR ROUNDED: MD ROUNDED AND SPOKE TO PATIENT. NEW ORDERS FOR MEDICATIONS WERE ORDERED ALONG WITH LAB DRAWS FOR TOMORROW.
[2025-03-28] MEDS ORDERED: Metoprolol Succinate 25 MG TABCR PO SCH ×2 (09:00)
[2025-03-28] MEDS ORDERED: MethylPREDNISolone Sod Succ 40 MG VIAL IV SCH (09:00)
[2025-03-28] MEDS ORDERED: FentaNYL Citrate 50 MCG/ML 2 ML Injection ONE ×2 (10:45→11:46)
[2025-03-28] MEDS ORDERED: Ipratropium/Albuterol SulF 2.5-0.5MG/3 ML Amp INH PRN (10:55)
--- NOTE | 2025-03-28 11:03 | NUR ---
RAPID RESPONSE: THIS RN WAS CALLED BY [facility] THAT PATIENTS HEART RATE WAS IN THE 200'S AND V-TACH MONOMORPHIC. PATIENT WAS AT THE EDGE OF THE BED GOING TO USE THE URINA, WAS ASKED HOW HE WAS FEELING AND PATIENT STATED "HE WAS A LITTLE DIZZY". BLOOD PRESSURE TAKEN AND NORMAL 120/86 MAP OF 99. PATIENT WAS LAID ON THE BED AND ASKED IF HE WOULD BE OKAY WITH GETTING SHOCKED DUE TO HIM BEING A DNR. PATIENT STATED "YES THAT'S FINE". PADS WERE PLACED ON, AND ZOLL WAS SYNCHRONIZED & CHARGED TO 200. PATIENT SHOCKED AND RYTHM RETURNED TO AFIB WITH RATE 90-120. PATIENT WAS GIVEN A ONE TIME DOSE OF AMIODARONE OF 150MG AND AN ORDER FOR AN AMIODARONE DRIP WAS PLACED. & SADE AT BEDSIDE. DAUGHTER WAS NOTIFIED & FREELANCE WRITER ELVIS WAS PAGED. EKG WAS DONE POST SHOCK AND LABS WERE ORDERED. PATIENT DENIES FEELING LIGHT HEADED OR DIZZY POST SHOCK, BLOOD PRESSURE 138/122 MAP 122 AND HEART RATE 132.
[2025-03-28] MEDS ORDERED: NS 250 ML IV ONE (11:45)
[2025-03-28] MEDS ORDERED: Heparin Sodium 1000 Units/ML 10ML MDV ONE ×2 (11:45→13:03)
[2025-03-28] MEDS ORDERED: NS 1,000 ML IV ONE ×2 (11:45→11:47)
[2025-03-28] MEDS ORDERED: Verapamil HCL 2.5 MG/ML 2ML Injection ONE (11:45)
[2025-03-28] MEDS ORDERED: Midazolam HCl 1MG / ML 2ML Vial ONE (11:46)
[2025-03-28] MEDS ORDERED: Nitroglycerin 2 MG/20 ML BTL ONE (11:46)
[2025-03-28 11:49] LABS: Albumin, Blood 3.8 g/dL (3.4-5.0); Anion Gap 13 mmol/L (3-11); Blood Urea Nitrogen 23 mg/dL (8-24); Bun/Creatinine Ratio 23.1 (12.0-20.0); CO2, Blood 30 mmol/L (21-32); Calcium, Blood 8.9 mg/dL (8.5-10.1); Chloride, Blood 101 mmol/L (98-108); Glomerular Filtration Rate 77 (60-); Glucose, Blood 200 mg/dL (70-99); Phosphorus, Blood 3.1 mg/dL (2.5-4.9); Potassium, Blood 3.6 mmol/L (3.5-5.5); Sodium, Blood 140 mmol/L (136-145)
[2025-03-28] MEDS ORDERED: Tirofiban HCL Monohydrate 3.75 MG/15 ML Vial ONE (11:56)
[2025-03-28] MEDS ORDERED: Atropine Sulfate 0.1 MG/ML 10ML SYR ONE (11:57)
[2025-03-28] MEDS ORDERED: Phenylephrine HCl 100 MCG/ML-NS 10MLSYR (1MG/10ML) ONE (11:57)
[2025-03-28] MEDS ORDERED: Digoxin 0.25 MG/ML 2ML Amp ONE (12:50)
--- NOTE | 2025-03-28 13:32 | NUR ---
MD CALLED: INFORMATION TECHNOLOGY COORDINATOR CALLED REGARDING PATIENTS MEDICATIONS AND GAVE VERBAL ORDERS TO BE PLACED.
[2025-03-28] MEDS ORDERED: FentaNYL Citrate 50 MCG/ML 2 ML Injection IV ONE (14:00)
--- NOTE | 2025-03-28 17:02 | NUR ---
SHIFT SUMMARY: PATIENT IS ALERT AND ORIENTED X4 & COOPERATIVE WITH HIS CARE, IS ABLE TO MAKE NEEDS KNOWN & USES CALL LIGHT APPROPIATELY. PATIENT IS ON TELE SHOWING AFIB WITH RATE 90-120, DID HAVE A RAPID RESPONSE FOR V-TACH, SEE PREIVOUS NOTES FOR MORE INFORMATION. PATIENT HAS FAMILY AT BEDSIDE. ANGIOGRAM WAS DONE WITH NO INTERVENTIONS, PATIENT ACCESS SITE RIGHT RADIAL AND NEEDED REMINDERS TO NOT USE WRIST HE WAS AND NEEDED TO KEEP THE WRIST BOARD ON LONGER. PATIENT EDUCATED ON WATCHING THE AMOUNT OF FLUID HE IS TAKING AND DUE TO DIURESING AND WANTING TO STAY AHEAD OF IT. PATIENT WAS GIVEN INSULIN FOR ELEVATED BLOOD SUGARS THORUGHOUT THE SHIFT. USES THE URINAL AT BEDSIDE AND IS STAND BY ASSIST. PATIENT HAS CALL LIGHT WITHIN REACH, BED IN LOWEST POSITION & STATNING NOTHING IS NEEDED AT THIS TIME. PLAN WILL BE TO CONTINUE TO TAKE AIR OUT OF TR BAND AND RECOVER SITE.
--- NOTE | 2025-03-28 17:15 | NUR ---
PALLIATIVE CARE VISIT: CALL RECEIVED FROM PRIMARY RN TO ADDRESS CODE STATUS/POLST. RN EXPLAINED PT HAD EVENT OF V-TACH ARRHYTHMIA AND WANTED TO BE SHOCKED TO HAVE ARRHYTHMIA CONVERTED. PT IS CURRENTLY A DNR. EDUCATED PT ON POLST DNR, COMFORT MEASURES VS SELECTIVE TREATMENT, FULL CODE/FULL TREATMENT. PT CHOSE DNR SELECTIVE TREATMENT. ADDITIONAL ORDERS ADDED PER PT REQUEST OK TO SHOCK IF IN ARRHYTHMIA. POLST SIGNED BY DAUGHTER IVY WHO WAS PRESENT PT HAD ANGIOGRAM AND R WRITING HAND WAS IN A ARM BAND AND HE WAS UNABLE TO SIGN. DR. STUART SIGNED POLST. FAXED TO [facility]/POLST REGISTRY. COPY PLACED ON CHART. ORIGINAL GIVEN BACK TO PATIENT AND ADVISED TO KEEP IN PLACE WHERE EMS WILL SEE IF THEY ARE CALLED.
--- NOTE | 2025-03-28 18:36 | NUR ---
ROUNDED: MD MUNOZ ROUNDED ON PATIENT TO CHECK ON SITE. AWARE THAT PATIENT WAS USING ARM AND BAND WAS ON FOR AN EXTRA AMOUNT OF TIME
--- NOTE | 2025-03-28 19:46 | NUR ---
ASSUMPTION OF CARE ASSUMED PT'S CARE AT 1900,BEDSIDE REPORT COMPLETED.PT WIDE AWAKE WATCHING TV.PLAN OF CARE REVIEWED.PACER PADS IN PLACE.RIGHT RADIAL SIDE SLIGHTLY SWOLLEN AND BRUISED,RADIAL PULSES STRONG.TRANSPARENT DRESSING CDI.PT DENIES PAIN,DENIES NEEDS.CALL LIGHT AND PT'S ITEMS WITHIN REACH.WILL CONTINUE TO MONITOR.
[2025-03-28] MEDS ORDERED: Apixaban 5 MG Tab PO SCH (21:00)
[2025-03-29] VITALS (15 sets, daily range): BP systolic 114–157; BP diastolic 78–118
[2025-03-29 05:15] LABS: BASOPHILS ABSOLUTE AUTO 0.03 K/mm3 (0.00-0.23); BASOPHILS PERCENT AUTO 0 % (0-2); EOSINOPHILS ABSOLUTE AUTO 0.05 K/mm3 (0.00-0.68); EOSINOPHILS PERCENT AUTO 0 % (0-6); Hemoglobin 15.3 g/dL (13.5-17.5); IMMATURE GRAN ABSOLUTE AUTO 0.12 K/mm3 (0.00-0.10); IMMATURE GRAN PERCENT AUTO 1 % (0-1); LYMPHOCYTES ABSOLUTE AUTO 1.42 K/mm3 (0.84-5.20); LYMPHOCYTES PERCENT AUTO 9 % (21-46); MONOCYTES ABSOLUTE AUTO 1.56 K/mm3 (0.16-1.47); MONOCYTES PERCENT AUTO 10 % (4-13); Mean Corpuscular HGB 28.7 pg (26.0-34.0); Mean Corpuscular HGB Conc 32.6 g/dL (31.5-36.5); Mean Corpuscular Volume 88 fL (80-100); Mean Platelet Volume 10.2 fL (9.1-12.4); NEUTROPHILS ABSOLUTE AUTO 13.03 K/mm3 (1.96-9.15); NEUTROPHILS PERCENT AUTO 80 % (41-73); Platelet Count 205 K/mm3 (150-400); RDW Coefficient Variation 15.6 % (11.7-14.2); RDW Standard Deviation 49.9 fL (35.1-46.3); Red Blood Cell Count 5.33 M/mm3 (4.30-5.90); White Blood Cell Count 16.21 K/mm3 (4.00-11.30)
[2025-03-29 05:40] LABS: Bun/Creatinine Ratio 29.7 (12.0-20.0); Calcium, Blood 8.9 mg/dL (8.5-10.1); Creatinine, Blood 0.98 mg/dL (0.60-1.20); Potassium, Blood 3.6 mmol/L (3.5-5.5)
--- NOTE | 2025-03-29 06:38 | NUR ---
PT HAS BEEN SLEEPING ON/OFF THROUGHOUT THE NIGHT,USES THE URINAL INDEPENDENTLY AT BEDSIDE.HR HAS BEEN IN THE 80'S-LOW 100'S AT REST.CONTINUES ON AMIODARONE 33.3ML/HR.NO C/O CHEST/DISCOMFORT.RIGHT RADIAL ACCESS SITE BRUISED AND SWOLLED.NO CHANGES NOTED TO SITE.PULSES STRONG.PT C/O SLIGHT PAIN TO RIGHT WRIST DENIES NEED FOR PAIN MED.PT AWAKE RESTING IN BED,DENIES PAIN,DENIES NEEDS.CALL LIGHT AND PT'S ITEMS WITHIN REACH.WILL GIVE REPORT TO DAYSHIFT NURSE FOR CONTINUITY OF CARE.
[2025-03-29] MEDS ORDERED: Potassium Chloride 20 MEQ TabCR PO ONE (07:10)
[2025-03-29] MEDS ORDERED: Amiodarone HCl 200 MG Tab PO SCH (08:00)
[2025-03-29] MEDS ORDERED: Sacubitril/Valsartan 24 MG-26 MG Tab PO SCH (09:00)
[2025-03-29] MEDS ORDERED: Metoprolol Succinate 50 MG TABCR PO SCH (09:00)
[2025-03-29] MEDS ORDERED: Miconazole Nitrate 2% 85 GM PWD TOP SCH (09:45)
--- NOTE | 2025-03-29 16:30 | NUR ---
SHIFT SUMMARY: A/O X4, PLEASANT AND COOPERATIVE WITH CARE, ABLE TO COMMUNICATE NEEDS, USES CALL LIGHT APPROPRIATELY. A FIB, [id number]%, BBB, HR 60'S-119'S. SAT >92% ON 2.5L O2 VIA NC, DYSPNIC W/PRODUCTICE COUGH. NO BM FOR 3 DAYS, MD NEWMAN ORDERED BOWEL CARE, USES URINAL AT BEDSIDE, BEDFAST THIS SHIFT DUE TO CARDIAC AND RESPIRATORY NEEDS. POSSIBLE D/C 03/30/25 WITH A LIFE VEST, PLAN FOR POSSIBLE PACER OUTPATIENT, TRANSITIONED FROM IV AMIODERONE TO PO PER EMAR.
[2025-03-29] MEDS ORDERED: Sennosides 8.6 MG Tab PO SCH (21:00)
[2025-03-30 04:41] VITALS: BP 116/94
--- NOTE | 2025-03-30 06:58 | NUR ---
SHIFT SUMMARY: PT IS A&OX4. VSS ON 2L NC, SATS >93%. PT ANXIOUS ABOUT ONLY USING 2L WHEN HE GETS HOME, FEELS THIS WILL NOT BE ADEQUATE. PT AFIB WITH BBB AND OCCASIONAL PVC IN THE 90'S. HR WENT INTO THE 130'S WITH EXERTION. DENIES PAIN. RIGHT ARM ECCYMOTIC, ACCESS SITE TEGADERM C/D/I, ARM BOARD REMAINS IN PLACE. PT IS COMPLIANT WITH RESTRICTIONS. PT OCCASIONALLY COUGHING, WITH SMALL AMOUNTS OF PHGLEM. TOLERATING A CONS CARB DIET. X1 ASSIST WITH FWW TO BR. VOIDING INDEPENDENTLY IN URINAL AT BEDSIDE, ADEQUATE AMOUNTS OF DARK YELLOW URINE. X1 MEDIUM, HARD, BROWN BM THIS SHIFT. BED IN LOWEST POSITION, CALL LIGHT WITHIN REACH. CALLS APPROPRIATELY AND IS ABLE TO ADVOCATE NEEDS EFFECTIVELY.
[2025-03-30 07:46] LABS: BASOPHILS ABSOLUTE AUTO 0.03 K/mm3 (0.00-0.23); BASOPHILS PERCENT AUTO 0 % (0-2); EOSINOPHILS ABSOLUTE AUTO 0.04 K/mm3 (0.00-0.68); EOSINOPHILS PERCENT AUTO 0 % (0-6); Hematocrit 47.4 % (37.0-53.0); Hemoglobin 15.3 g/dL (13.5-17.5); IMMATURE GRAN ABSOLUTE AUTO 0.09 K/mm3 (0.00-0.10); IMMATURE GRAN PERCENT AUTO 1 % (0-1); LYMPHOCYTES PERCENT AUTO 12 % (21-46); MONOCYTES ABSOLUTE AUTO 1.79 K/mm3 (0.16-1.47); MONOCYTES PERCENT AUTO 13 % (4-13); Mean Corpuscular HGB 28.1 pg (26.0-34.0); Mean Corpuscular HGB Conc 32.3 g/dL (31.5-36.5); Mean Corpuscular Volume 87 fL (80-100); Mean Platelet Volume 9.9 fL (9.1-12.4); NEUTROPHILS ABSOLUTE AUTO 10.17 K/mm3 (1.96-9.15); NEUTROPHILS PERCENT AUTO 74 % (41-73); Platelet Count 208 K/mm3 (150-400); RDW Coefficient Variation 15.3 % (11.7-14.2); RDW Standard Deviation 48.4 fL (35.1-46.3); Red Blood Cell Count 5.44 M/mm3 (4.30-5.90); White Blood Cell Count 13.82 K/mm3 (4.00-11.30)
[2025-03-30 08:01] LABS: Creatinine, Blood 0.84 mg/dL (0.60-1.20); Potassium, Blood 3.8 mmol/L (3.5-5.5)
[2025-03-30 08:17] VITALS: BP 104/70
[2025-03-30] MEDS ORDERED: Torsemide 20 MG TAB PO SCH (09:00)
[2025-03-30 12:34] VITALS: BP 109/69
[2025-03-30 15:30] VITALS: BP 124/60
[2025-03-30] MEDS ORDERED: Acetaminophen650 M1 PO (16:13)
[2025-03-30] MEDS ORDERED: AMLO5 PO (16:16)
[2025-03-30] MEDS ORDERED: Amiodarone HCl200 MG PO (16:16)
[2025-03-30] MEDS ORDERED: AMIODARONE HCL400 M2 PO (16:20)
[2025-03-30] MEDS ORDERED: ELIQUIS5 M2 PO (16:24)
[2025-03-30] MEDS ORDERED: ATOR80 PO (16:26)
[2025-03-30] MEDS ORDERED: JARDIANCE10 MG PO (16:28)
[2025-03-30] MEDS ORDERED: PANT20 PO (16:31)
[2025-03-30] MEDS ORDERED: ENTRESTO 24 MG1 EACH PO (16:45)
[2025-03-30] MEDS ORDERED: SENN187 PO (16:46)
[2025-03-30] MEDS ORDERED: SPIR25 PO (16:47)
[2025-03-30] MEDS ORDERED: TORSE20 PO (16:49)
[2025-03-30] MEDS ORDERED: PRED20 PO (16:50)
--- NOTE | 2025-03-30 18:58 | NUR ---
This RN student gave pt discharge instructions. Pt notified about medications that he should not take anymore, as well as prescriptions that were changed or added. Pt was notified about f/u appointment with Dr. Elizalde, and educated regarding diet and lifestyle modifications. Pt expressed understanding with Tx plan and had no further questions or concerns.
[2025-04-02] MEDS ORDERED: Amiodarone HCl 200 MG Tab PO SCH (09:00)
== END 2025-03-30 20:01 | disposition home or self-care (01) | DRG 280 ==
LOC: ER 00:42 → PCU 05:00 → ER 06:12 → PCU 06:19
PROVIDERS: Internal Medicine; Internal Medicine Cardiovascular Disease; Internal Medicine Endocrinology, Diabetes & Metabolism; Student in an Organized Health Care Education/Training Program; ADMIT Student in an Organized Health Care Education/Training Program
PROC: B2111ZZ Fluoroscopy of Multiple Coronary Arteries using Low Osmolar Contrast (ICD-10-PCS; principal; 2025-03-28)
PROC: 5A2204Z Restoration of Cardiac Rhythm, Single (ICD-10-PCS; 2025-03-28)
DX: I21.4 Non-ST elevation (NSTEMI) myocardial infarction (principal); I46.2 Cardiac arrest due to underlying cardiac condition; I50.23 Acute on chronic systolic (congestive) heart failure; J96.21 Acute and chronic respiratory failure with hypoxia; J96.22 Acute and chronic respiratory failure with hypercapnia; I47.20 Ventricular tachycardia, unspecified; I42.0 Dilated cardiomyopathy; I48.20 Chronic atrial fibrillation, unspecified; J44.1 Chronic obstructive pulmonary disease with (acute) exacerbation; Z66 Do not resuscitate; I25.10 Atherosclerotic heart disease of native coronary artery without angina pectoris; J44.9 Chronic obstructive pulmonary disease, unspecified; E11.9 Type 2 diabetes mellitus without complications; I11.0 Hypertensive heart disease with heart failure; I25.5 Ischemic cardiomyopathy; G47.33 Obstructive sleep apnea (adult) (pediatric); E78.00 Pure hypercholesterolemia, unspecified; E66.01 Morbid (severe) obesity due to excess calories; F17.200 Nicotine dependence, unspecified, uncomplicated; Z51.81 Encounter for therapeutic drug level monitoring; Z99.81 Dependence on supplemental oxygen; Z95.5 Presence of coronary angioplasty implant and graft; Z79.84 Long term (current) use of oral hypoglycemic drugs; Z79.01 Long term (current) use of anticoagulants; Z79.82 Long term (current) use of aspirin; Z79.52 Long term (current) use of systemic steroids; Z68.35 Body mass index [BMI] 35.0-35.9, adult
CPT/HCPCS: 0241U; 36415; 36416; 71045; 76937; 80048; 80053; 80069; 82803; 82947; 83036; 83735; 83880; 84145; 84443; 84484; 85014; 85018; 85025; 85049; 85520; 85610; 85730; 87070; 87205; 93005; 93010; 93454; 94640; 94644; 94664; 94762; 96365; 96367; 96375; 97116; 97162; 99285-25; A9270; C1769; C1887; C1894; C8929; J0282; J0456; J0461; J0696; J1160; J1644; J2250; J2371; J2470; J2919; J3010; J3246; J7030; J7050; J7060; Q9957; Q9967

== ENCOUNTER 2025-05-02 18:38 | Emergency (ER) | payer MEDICARE ==
[~2025-05-02] VITALS: Ht 182.9 cm; Wt 117.9 kg
[~2025-05-02 18:38] MED LIST changes: +AMIODARONE HCL400 M2 PO; +AMLO5 PO; +ATOR80 PO; +Acetaminophen650 M1 PO; +Amiodarone HCl200 MG PO; +C COMPLEX1000 M1 PO; +CINNAMON EXTRA500 MG PO; +ELIQUIS5 M2 PO; +ENTRESTO 24 MG1 EACH PO; +JARDIANCE10 MG PO; +PANT20 PO; +SENN187 PO; +SPIR25 PO; +TORSE20 PO; +TRELEGY ELLIPT1 EACH INH; +Vitamin D1000 UNI1 PO
[2025-05-02 19:54] VITALS: BP 142/106
[2025-05-02 20:22] LABS: BASOPHILS ABSOLUTE AUTO 0.04 K/mm3 (0.00-0.23); BASOPHILS PERCENT AUTO 0 % (0-2); EOSINOPHILS ABSOLUTE AUTO 0.27 K/mm3 (0.00-0.68); EOSINOPHILS PERCENT AUTO 3 % (0-6); Hematocrit 43.7 % (37.0-53.0); Hemoglobin 14.3 g/dL (13.5-17.5); IMMATURE GRAN ABSOLUTE AUTO 0.06 K/mm3 (0.00-0.10); IMMATURE GRAN PERCENT AUTO 1 % (0-1); LYMPHOCYTES PERCENT AUTO 21 % (21-46); MONOCYTES ABSOLUTE AUTO 0.87 K/mm3 (0.16-1.47); MONOCYTES PERCENT AUTO 10 % (4-13); Mean Corpuscular HGB Conc 32.7 g/dL (31.5-36.5); Mean Corpuscular Volume 89 fL (80-100); Mean Platelet Volume 9.8 fL (9.1-12.4); NEUTROPHILS ABSOLUTE AUTO 6.01 K/mm3 (1.96-9.15); NEUTROPHILS PERCENT AUTO 66 % (41-73); Platelet Count 179 K/mm3 (150-400); RDW Coefficient Variation 15.8 % (11.7-14.2); Red Blood Cell Count 4.93 M/mm3 (4.30-5.90); White Blood Cell Count 9.15 K/mm3 (4.00-11.30)
[2025-05-02 20:48] LABS: Albumin, Blood 3.5 g/dL (3.4-5.0); Albumin/Globulin Ratio 1.1 (0.8-1.8); Bilirubin, Total 0.8 mg/dL (0.1-1.0); Bun/Creatinine Ratio 14.7 (12.0-20.0); Calcium, Blood 8.3 mg/dL (8.5-10.1); Creatinine, Blood 0.89 mg/dL (0.60-1.20); Globulin, Blood 3.2 g/dL (2.2-4.0); Potassium, Blood 4.5 mmol/L (3.5-5.5); Total Protein, Blood 6.7 g/dL (6.4-8.2)
== END 2025-05-02 22:50 | disposition home or self-care (01) ==
LOC: ER 18:38
PROVIDERS: Student in an Organized Health Care Education/Training Program
DX: Z76.0 Encounter for issue of repeat prescription (principal); I48.91 Unspecified atrial fibrillation; J44.9 Chronic obstructive pulmonary disease, unspecified; G47.33 Obstructive sleep apnea (adult) (pediatric); E11.9 Type 2 diabetes mellitus without complications; I50.9 Heart failure, unspecified; F17.210 Nicotine dependence, cigarettes, uncomplicated; Z79.899 Other long term (current) drug therapy; Z79.84 Long term (current) use of oral hypoglycemic drugs; Z79.82 Long term (current) use of aspirin; Z79.2 Long term (current) use of antibiotics; Z79.01 Long term (current) use of anticoagulants
CPT/HCPCS: 71046; 80053; 82947; 83690; 83880; 84484; 85025; 93005; 93010; 99283-25